=== PATIENT | female | born 1980 | race Caucasian/White ===

== ENCOUNTER 2023-11-01 17:18 | Emergency (ER) | payer OTHER, SELFPAY ==
[2023-11-01 17:20] VITALS: BP 152/109
[2023-11-01 18:00] VITALS: BP 118/65
--- NOTE | 2023-11-01 18:12 | ED.GENMED ---
History of Present Illness
<Arianna Shen PA-C - Last Filed: 11/01/23 21:13>
General
Chief Complaint: Heart Rate Problem
Source: patient
Exam Limitations: none
Time Seen by Provider: 11/01/23 18:12
Nursing documentation reviewed up to this point in time: agreed with
Travel History
Have you had any contact with someone who has COVID-19?: No
Do you have any symptoms of coronavirus? Fever > 100 degrees, chills, cough, shortness of breath, sore throat, loss of taste or smell, muscle aches, or headache?: No
History of Present Illness
History of Present Illness:
This is a 50-year-old female with a past medical history of opioid substance abuse, tachycardia, presenting to the emergency department today with concerns of palpitations. Patient states that he started 2 days ago and are associated with chest
discomfort and shortness of breath when they come on. Patient states that they will come and go throughout the day but today, they were lasting for hours at a time and so she decided to report to the emergency department. Patient denies any
dizziness, lightheadedness. Patient denies any abdominal pain, nausea, vomiting. Patient states that many many years ago, she had a racing heart rate and was put on a Holter monitor and saw oil field rig builder and said that everything was found to be
normal and was put on atenolol for short period of time. Patient no longer takes any cardiac medications has not seen a oil field rig builder many years ago she has no issues. Patient did not see oil field rig builder within [facility].
Past History
<Arianna Shen PA-C - Last Filed: 11/01/23 21:13>
Past History
ED Past Medical History: None
ED Past Surgical History: None
Social History
Tobacco: Non-smoker
Alcohol: None
Review of Systems
<Arianna Shen PA-C - Last Filed: 11/01/23 21:13>
Review of Systems
All Other Systems: ROS reviewed and negative except as documented in HPI and ROS
Phy Exam
<Arianna Shen PA-C - Last Filed: 11/01/23 21:13>
Physical Exam
Physical Exam:
General: Patient is well appearing and in no acute distress; non-toxic
Skin: Warm and dry, no rashes or lesions
Head: Normocephalic, atraumatic
Eyes: Sclera non-icteric. EOMs intact. PERRLA.
Cardiac: Heart rate is regular with no murmurs, rubs, or gallops
Peripheral Vascular: No lower extremity swelling or edema
Pulm: Normal respiratory effort, no wheezes, rales, rhonchi
Abdomen: No abdominal tenderness to palpation
Neuro: CN II-XII intact, no focal neurologic deficits.
Psychiatric: Appropriate mood and affect.
Course
<Arianna Shen PA-C - Last Filed: 11/01/23 21:13>
Orders/Labs/Results
Orders:
Orders
11/01/23 17:19
ECG [Electrocardiogram (*1)] Urgent
Reason for Study: Chest Pain
EKG- Treatment ONCE
11/01/23 18:25
Complete Blood Count/With Diff Urgent
Comprehensive Metabolic Panel Urgent
HCG, Serum Qualitative Screen Urgent
Comment: ADD-ON
TSH Reflex To Free T4 Urgent
Troponin I Routine
11/01/23 20:14
Add On- LAB Urgent
Tests Added?: hcg
Abnormal Lab Results
11/01/23
18:25
RBC 4.02 L 10^6/uL
(4.20-5.40)
MCV 100.7 H fL
(81.0-99.0)
MCH 36.3 H pg
(27.0-31.0)
Glucose 115 H mg/dl
(70-99)
11/01/23 18:25
11/01/23 18:25
Vital Signs
Initial and Last Documented VS:
Initial Vital Signs
Temp Pulse Resp BP Pulse Ox
36.8 C 102 16 152/109 98
11/01/23 17:20 11/01/23 17:20 11/01/23 17:20 11/01/23 17:20 11/01/23 17:20
Last Documented Vital Signs
Temp Pulse Resp BP Pulse Ox
36.8 C 80 13 107/69 97
11/01/23 17:20 11/01/23 20:15 11/01/23 20:15 11/01/23 20:00 11/01/23 20:15
<Bimal Wilson MD - Last Filed: 11/02/23 00:16>
Orders/Labs/Results
Orders:
Orders
11/01/23 17:19
ECG [Electrocardiogram (*1)] Urgent
Reason for Study: Chest Pain
EKG- Treatment ONCE
11/01/23 18:25
Complete Blood Count/With Diff Urgent
Comprehensive Metabolic Panel Urgent
HCG, Serum Qualitative Screen Urgent
Comment: ADD-ON
TSH Reflex To Free T4 Urgent
Troponin I Routine
11/01/23 20:14
Add On- LAB Urgent
Tests Added?: hcg
Abnormal Lab Results
11/01/23
18:25
RBC 4.02 L 10^6/uL
(4.20-5.40)
MCV 100.7 H fL
(81.0-99.0)
MCH 36.3 H pg
(27.0-31.0)
Glucose 115 H mg/dl
(70-99)
11/01/23 18:25
11/01/23 18:25
Vital Signs
Initial and Last Documented VS:
Initial Vital Signs
Temp Pulse Resp BP Pulse Ox
36.8 C 102 16 152/109 98
11/01/23 17:20 11/01/23 17:20 11/01/23 17:20 11/01/23 17:20 11/01/23 17:20
Last Documented Vital Signs
Temp Pulse Resp BP Pulse Ox
36.8 C 80 13 107/69 97
11/01/23 17:20 11/01/23 20:15 11/01/23 20:15 11/01/23 20:00 11/01/23 20:15
<Arianna Shen PA-C - Last Filed: 11/01/23 21:13>
MDM/Problems Addressed
Differential Diagnosis Includes:
Differentials include sinus arrythmia, symptomatic PVCs--anemia, electrolyte derangement, hypothyroidism
MDM/Problems Addressed:
palpitations
Chronic conditions affecting care:
hx of substance abuse
<Arianna Shen PA-C - Last Filed: 11/01/23 21:13>
*Pulse Oximetry
Patient hypoxic: no
*EKG
Interpreted by ED Provider?: Yes
EKG Intrepretation Date: 11/01/23
Interpretation: abnormal
Comparison EKG: no comparison EKG present
Heart Rate: 109
Rate: tachycardiac
Rhythm: sinus and PVC's
Surprise: normal axis
Interval: normal interval
Ischemia: no ischemia
*Assistant Director Of Public Works Interpretation
Rate: normal
Interpretation: abnormal
Heart Rate: 90
Rhythm: sinus and PVC's
*Critical Care Note
Total Time (30-74mins, 75-104mins- exclusive of procedures): Not Applicable
Data Reviewed
Review of Other/Old Records Reveals: Records (Reviewed ER physician documentation from 12/18/2021) and Discharge Summary (no recent discharge summaries to review)
Source: patient and records
<Arianna Shen PA-C - Last Filed: 11/01/23 21:13>
Patient Management
Escalation/DeEscalation of care consider admission/obs:
This is a 50-year-old female with a past medical history of opioid substance abuse, tachycardia, presenting to the emergency department today with concerns of palpitations. Patient states that he started 2 days ago and are associated with chest
discomfort and shortness of breath when they come on. Emergency department, she is very well-appearing, and her EKG demonstrates normal sinus rhythm with frequent PVCs. Initial troponin negative, considering patient's chest comfort has been going
on for few days now, no indication for repeat. Lab work negative for any anemia, electrolyte derangements, hyperthyroidism. Considering patient is very symptomatic, we will start her on metoprolol once daily, she is in agreement with this plan,
will follow-up with a oil field rig builder
ED Attending Note
<Arianna Shen PA-C - Last Filed: 11/01/23 21:13>
-
Portions of this chart may have been created with voice recognition software.� Occasional wrong word or��sound alike� substitutions may have occurred due to the inherent limitations of voice recognition software.
<Bimal Wilson MD - Last Filed: 11/02/23 00:16>
ED Attending Note
Patient seen and examined by attending physician: Yes
ED Attending Note:
I have seen and evaluated the patient with a [id number] encounter. I have spoken to the advance practicer provider and involved in the medical history, the physical exam, medical decision making.
Evaluation and management service: agree unless noted differently below.
Results interpretation: agree unless noted differently below.
Focused HPI: 42-year-old female with distant history of drug use presents to the emergency room for evaluation of palpitations. Patient reports onset of symptoms 2 days ago and they have been intermittent since that time. She reports sensation of
her heart beating very hard in her chest. She denies any chest pain. Denies any shortness of breath. She denies any other complaints. She says she has had the symptoms before but usually less severe and frequent. Has never seen a oil field rig builder.
Physical exam: Awake alert not in distress. Hypertensive and tachycardic in triage but vital signs have normalized by my assessment. She has no cardiac rubs gallops or murmurs, occasional ectopy. Lungs clear to auscultation bilaterally. Good
pulses in all extremities. No edema in her extremities.
Medical Decision Makin-year-old female presents with palpitations over the past few days. Vital signs normal on my assessment. Exam as above. We did an EKG which shows sinus rhythm with frequent PVCs which I think likely accounts for her
symptoms�she was having significant symptoms while EKG occurring. We sent basic labs including a CBC and a CMP which were unremarkable, troponin which was negative, thyroid studies which are normal. She is quite symptomatic from her PVCs, will
start on low-dose of Toprol and have patient follow-up with cardiology as an outpatient for follow-up. Patient is comfortable with this plan. Spoke about return precautions all questions answered
Discharge Plan
Departure
Patient Disposition: Home (Routine Discharge)
Date of Disposition: 11/01/23
Time of Disposition: 20:13
Patient with high blood pressure during this ER visit?: Yes
Discharge Problem:
Palpitations, Frequent PVCs
Instructions: Palpitations (DC)
Prescriptions:
New
metoprolol succinate [Toprol XL] 25 mg tablet extended release 24 hr
12.5 mg PO DAILY Qty: 30 0RF
No Action
triamcinolone acetonide 1 APPLIC ointment
1 applic topical TID Qty: 1 0RF
Rx Instructions:
Do not use on face.
hydroxyzine HCl 25 MG tablet
25 mg PO QIDPRN PRN (Reason: itching) Qty: 20 0RF
tobramycin-dexamethasone [TobraDex] 0.3-0.1 % drops,suspension
1 drp ophthalmic (eye) QID Qty: 5 0RF
Referrals:
Yonatan Jimenez DO [Family Provider] - Call in 1-3 days for appt
Neptali Colin MD [Active] - Call in 1-3 days for appt
Activity Restrictions/Additional Instructions:
Thank you for visiting the Emergency Department at [facility].
1. Please schedule a follow up appointment as directed. Call first thing tomorrow morning to make an appointment.
2. If indicated, please take your medications as instructed and indicated on discharge paperwork.
3. If any of your symptoms do not improve, or persist, or become more severe within 6-12 hours, please return to the emergency department for further care.
4. Please return to the emergency department if you develop a headache, neck pain/stiffness, fever greater than 100.4F, chest pain, shortness of breath, persistent nausea, vomiting, slurred speech, difficulty walking, numbness/tingling, weakness,
signs of infection or any other symptoms that are worrisome to you.
Please call [phone] if you have any questions.
Interventions
Interventions:
*Risk Screen - Suicide Last Done: 11/01/23 18:26
*Neglect/Abuse Screening Last Done: 11/01/23 18:26
ED- Fall Risk Assessment Last Done: 11/01/23 18:26
*ED COVID-19 Vaccine History Last Done: 11/01/23 17:20
*Nursing Disposition Last Done: 11/01/23 20:37
ED- Cardiac Assessment Last Done: 11/01/23 18:26
ED- Pulmonary Assessment Last Done: 11/01/23 18:26
Discharge Date and Time
Discharge Date/Time: 11/01/23 20:38
Print Language: SINHALA
[2023-11-01 18:51] LABS: % Basophils 0.7 % (0-2); % Eosinophils 0.7 % (0-6); % Immature Granulocytes 0.2 % (0-0.5); % Lymphocytes 36.2 % (20.5-51.1); % Monocytes 8.8 % (1.7-9.3); % Neutrophils 53.4 % (42.2-75.2); Absolute Monocytes 0.5 10^3/uL (0.1-0.6); Hematocrit 40.5 % (37.0-47.0); Hemoglobin 14.6 g/dL (12.0-16.0); Mean Corpuscular Hgb 36.3 pg (27.0-31.0); Mean Corpuscular Volume 100.7 fL (81.0-99.0); Mean Platelet Volume 9.5 fL (7.4-10.4); Nucleated Red Blood Cells % 0 %; Platelet Count 191 10^3/uL (130-400); Red Blood Cell Count 4.02 10^6/uL (4.20-5.40); Red Cell Dist. Width 11.5 % (11.5-14.5); White Blood Cell Count 5.6 10^3/uL (4.8-10.8)
[2023-11-01 19:00] VITALS: BP 115/78
[2023-11-01 19:06] LABS: ALT (SGPT) 19 U/L (0-35); AST (SGOT) 28 U/L (14-36); Albumin 4.8 g/dl (3.5-5.0); Alkaline Phosphatase 43 U/L (38-126); Blood Urea Nitrogen 13 mg/dl (7-17); Calcium 9.5 mg/dl (8.4-10.2); Carbon Dioxide 28 mmol/L (22-30); Chloride 101 mmol/L (98-107); Estimated Creatinine Clearance > 125 ml/min; Glucose 115 mg/dl (70-99); Potassium 4.2 mmol/L (3.5-5.1); Sodium 138 mmol/L (135-145); Total Bilirubin 0.5 mg/dl (0.2-1.3); Total Protein 7.5 g/dl (6.3-8.2); eGFR > 60.00
[2023-11-01 19:17] LABS: Troponin I 0.016 ng/ml
[2023-11-01 19:47] LABS: TSH Reflex To Free T4 1.29 uIU/ml (0.47-4.68)
[2023-11-01 20:00] VITALS: BP 107/69
[2023-11-01 20:33] LABS: HCG, Serum Qualitative Screen Negative
== END 2023-11-01 20:38 | disposition home or self-care (01) ==
LOC: EMR 17:18
PROVIDERS: Physician Assistant; EMERGENCY PHYSICIAN Emergency Medicine; FAMILY PHYSICIAN Internal Medicine
DX: R00.2 Palpitations (principal); I49.3 Ventricular premature depolarization; F11.10 Opioid abuse, uncomplicated
CPT/HCPCS: 99283; 80053; 84443; 84484; 84703; 85025; 93005

== ENCOUNTER → 2023-12-15 14:41 | Outpatient (REF) | payer OTHER, SELFPAY | LOC: HWRCS 14:41 | PROVIDERS: ATTENDING PHYSICIAN Internal Medicine Cardiovascular Disease; FAMILY PHYSICIAN Internal Medicine | DX: I49.3 Ventricular premature depolarization (principal) | CPT/HCPCS: 93306 ==